=== PATIENT | male | born 1970 | race Caucasian/White ===

== ENCOUNTER 2023-04-06 15:47 | Emergency (ER) | payer OTHER ==
[2023-04-06 15:55] VITALS: BMI 37.8
[2023-04-06] MEDS ORDERED: cefTRIAXone SODIUM 1 GM VIAL ONE (17:50)
[2023-04-06 18:32] LABS: BASO % 1.7 % (0-2.0); EOS % 0.9 % (0-4.5); HEMATOCRIT 38.8 % (35.4-49); HEMOGLOBIN 13.3 GM/dL (11.7-16.9); LYMPH % 8.6 % (8-40); MCH 35.5 pg (25.7-33.7); MCHC 34.4 g/dl (32.0-35.9); MEAN CELL VOLUME 103.1 fl (80-96); MEAN PLT VOLUME 9.9 fl (7.5-11.1); MONO % 13.4 % (3.8-10.2); NEUT % 75.4 % (42.8-82.8); PLATELET COUNT 53 10^3/uL (134-434); RBC 3.76 M/mm3 (4.00-5.60)
[2023-04-06 18:41] LABS: INR 1.97 (0.83-1.09); PROTHROMBIN TIME (PATIENT) 22.7 SEC (9.7-13.0)
[2023-04-06 18:44] LABS: ACTIVATED PTT 39.8 SECONDS (25.2-36.5)
[2023-04-06 19:13] LABS: CHLORIDE 104 mmol/L (98-107); SODIUM 128 mmol/L (136-145)
[2023-04-06 19:15] LABS: ALBUMIN 1.6 g/dl (3.4-5.0); CALCIUM 7.9 mg/dL (8.5-10.1); CO2 21 mmol/L (21-32); LIPASE 356 U/L (73-393)
[2023-04-06 19:16] LABS: GLUCOSE,RANDOM 86 mg/dL (74-106)
[2023-04-06 19:18] LABS: CREATININE 2.1 mg/dL (0.55-1.3)
[2023-04-06 19:20] LABS: TOT PROT 7.3 g/dl (6.4-8.2)
[2023-04-06 19:21] LABS: ALK PHOS 192 U/L (45-117)
[2023-04-06 19:26] LABS: ANION GAP 3 MMOL/L (8-16); BILIRUBIN,TOTAL > 25.0 mg/dL (0.2-1); POTASSIUM 9.8 mmol/L (3.5-5.1); SGOT/AST 516 U/L (15-37); SGPT/ALT 220 U/L (13-61)
[2023-04-06 20:38] VITALS: RESP 18
[2023-04-06 20:43] LABS: EPI CELLS 1 /uL (0-25.1); HYALINE CASTS 1 /uL (0-3.1); URINE APPEARANCE CLEAR; URINE BILIRUBIN 3+ (NEGATIVE); URINE COLOR DK YELLOW; URINE GLUCOSE (UA) NEGATIVE (NEGATIVE); URINE KETONE NEGATIVE (NEGATIVE); URINE LEUK ESTERASE TRACE (NEGATIVE); URINE NITRITE POSITIVE (NEGATIVE); URINE PROTEIN TRACE (NEGATIVE); URINE UROBILINOGEN 0.2 mg/dL (0.2-1.0); URINE WBC 1 /uL (0-25.8)
[2023-04-06 20:57] LABS: CHLORIDE 107 mmol/L (98-107); SODIUM 135 mmol/L (136-145)
[2023-04-06 20:58] LABS: CALCIUM 8.5 mg/dL (8.5-10.1)
[2023-04-06 20:59] LABS: BLOOD UREA NITROGEN 20.2 mg/dL (7-18); CO2 21 mmol/L (21-32); GLUCOSE,RANDOM 92 mg/dL (74-106)
[2023-04-06 21:02] LABS: CREATININE 1.7 mg/dL (0.55-1.3)
[2023-04-06 21:04] LABS: ANION GAP 7 MMOL/L (8-16); POTASSIUM 6.3 mmol/L (3.5-5.1)
[2023-04-07 01:58] VITALS: BP 133/64; PULSE 82; TEMP 98.2
== END 2023-04-07 02:00 | disposition short-term general hospital (02) ==
LOC: JER 15:47
PROC: 3E033GC Introduction of Other Therapeutic Substance into Peripheral Vein, Percutaneous Approach (ICD-10-PCS; principal; 2023-04-06)
DX: K72.90 Hepatic failure, unspecified without coma (principal); R17 Unspecified jaundice; F10.90 Alcohol use, unspecified, uncomplicated
CPT/HCPCS: 0241U-QW; 36415; 76705-TC; 80048; 80053; 81003; 82248; 83690; 84132; 85025; 85610; 85730; 93005; 93010; 99285-25